=== PATIENT | female | born 1950 | race Caucasian/White ===

== ENCOUNTER 2022-05-16 11:57 | Day surgery (SDC) | payer MEDICARE, OTHER ==
[~2022-05-16] VITALS: Ht 147.3 cm; Wt 52.0 kg
[~2022-05-16 11:57] MED LIST: ACETAMINOPHEN325 M1 PO; ADULT LOW DOSE81 MG PO; DIGOXIN250 MCG PO; HYDROCHLOROTH12.5 MG PO; LIPITOR80 MG PO; LISINOPRIL-HCT1 EACH PO; LOSARTAN-HCTZ1 EACH PO; MAGNESIUM OXID400 M1 PO; METFORMIN HCL500 MG PO; TRAZODONE HCL50 MG PO; VENTOLIN HFA18 GM INH; VITAMIN D350 MC3 PO; WARFARIN SODIUM5 MG PO
[2022-05-16] MEDS ORDERED: LOVENOX40 MG/0.4 (12:16)
--- NOTE | 2022-05-16 13:17 | NUR ---
05/16/22 1317 Kathia Bains 1314 PATIENT ARRIVES TO PACU SLEEPING. AWAKENS WITH VERBAL STIMULI. RESP EVEN AND UNLABORED, ROOM AIR SATS >94%.
--- NOTE | 2022-05-17 15:57 | OR ---
[facility] [address], [place] [address] Signed DATE OF OPERATION: 05/16/2022 SURGEON: Yaniv Welsh MD PREOPERATIVE DIAGNOSES: 1. Colon screening; family history of colon cancer (father). 2. History of mitral valve repair and chronic anticoagulation (Coumadin). POSTOPERATIVE DIAGNOSIS: Normal colon to cecum. PROCEDURE: Total colonoscopy to cecum. ANESTHESIA: Intravenous sedation, fentanyl 100 mcg and Versed 3 mg. PREOPERATIVE ANTIBIOTIC: Gentamicin 80 mg and ampicillin 1 g. INDICATION: A 71-year-old white woman is a patient of Dr. Baeza. She underwent appendectomy and cholecystectomy in 2007 as well as colonoscopy and upper endoscopy. Colonoscopy was unremarkable. The patient has family history of colon cancer in her father. She is currently symptom free, having no bleeding, diarrhea or constipation. She is admitted at this time to undergo rather screening colonoscopy based on interval of time since her last colonoscopy (2007). She understands the risks of bleeding, infection, and perforation related to colonoscopy and wished to proceed. FINDINGS: Prep was excellent. Complete colonoscopy was undertaken to the cecum without question. She had no evidence of polyps, diverticula formation, colitis, or cancer. PROCEDURE IN DETAIL: The patient was brought to the endoscopy suite and placed in lateral decubitus position. She had been given preoperative antibiotic of gentamicin and ampicillin on the basis of her prior mitral valve replacement. Additionally, she was on Lovenox bridge therapy and off her Coumadin for several days. After satisfactory intravenous sedation with full cardiopulmonary monitoring. An Electronically Signed By: YANIV WELSH MD 05/17/22 1557 PATIENT NAME: GENARO OLMOS OPERATIVE REPORT DATE OF : 52 REPORT #: [id number] PHYSICIAN: YANIV WELSH MD PCP: JANNETTE BAEZA MD REPORT IS CONFIDENTIAL AND NOT TO BE RELEASED WITHOUT AUTHORIZATION [facility] [address], [place] [address] Signed Olympus video colonoscope was passed in the rectum after normal digital rectal examination was noted. The scope was manipulated throughout the colon ultimately intubating the cecum itself. The ileocecal valve and appendiceal orifice were normal. The scope was withdrawn, examination throughout showed no sign of polyps, diverticular formation, colitis, or cancer. Retroflexed view was normal as well. The scope was removed. The patient was taken to the recovery room in good condition. CONCLUSION DIAGNOSIS: Normal colon. PLAN: Recommend repeat colonoscopy in 5 years, sooner if clinically indicated. She will return to the ongoing care of Dr. Jannette Baeza otherwise. MD JJ Desouza/SAIRA /[id number] cc: Dr. Jannette Baeza Copies: ~ Electronically Signed By: YANIV WELSH MD 05/17/22 1557 PATIENT NAME: GENARO OLMOS OPERATIVE REPORT DATE OF : 52 REPORT #: [id number] PHYSICIAN: YANIV WELSH MD PCP: JANNETTE BAEZA MD REPORT IS CONFIDENTIAL AND NOT TO BE RELEASED WITHOUT AUTHORIZATION
== END 2022-05-16 13:50 | disposition home or self-care (01) ==
LOC: DS 11:57 → OPS 11:57 → DS 13:00 → OPS 13:00
PROVIDERS: ATTEND Surgery
PROC: 0DJD8ZZ Inspection of Lower Intestinal Tract, Via Natural or Artificial Opening Endoscopic (ICD-10-PCS; principal; 2022-05-16 13:00)
DX: Z12.11 Encounter for screening for malignant neoplasm of colon (principal); Z80.0 Family history of malignant neoplasm of digestive organs; Z90.49 Acquired absence of other specified parts of digestive tract; I10 Essential (primary) hypertension; E78.5 Hyperlipidemia, unspecified; Z79.01 Long term (current) use of anticoagulants; Z95.2 Presence of prosthetic heart valve; Z79.82 Long term (current) use of aspirin; Z79.84 Long term (current) use of oral hypoglycemic drugs; J45.909 Unspecified asthma, uncomplicated
CPT/HCPCS: 99153; G0500; J0290; J1580; J2250; J3010; J7121

== ENCOUNTER 2025-04-30 19:25 | Emergency (ER) | payer MEDICARE, OTHER ==
[~2025-04-30] VITALS: Ht 147.3 cm; Wt 50.0 kg
[~2025-04-30 19:25] MED LIST changes: +DIGOXIN125 MCG PO; +ENOXAPARIN60 MG/0.6 SUB-Q; +FARXIGA10 MG PO; +LOSARTAN POTASS50 MG PO; +LOVENOX40 MG/0.4; +METOPROLOL TART25 MG PO; +WARFARIN SODIU7.5 MG PO
--- OUTSIDE RECORDS SUMMARY | 2025-04-30 19:32 | XMS ---
PreManage Notification: GENARO OLMOS Security Slp Events No recent Security Events currently on file CRITERIA MET - [facility] - 2 Visits in 30 Days CARE PROVIDERS There are no care providers on record at this time. Ganesh has no Care Guidelines for this patient. Nickie VISIT COUNT (12 MO.) [facility] [place] T[facility] 2 NOTE: Visits indicate total known visits. ED/UCC VISIT TRACKING (12 MO.) 04/30/2025 19:26 ANNELIESE Ortiz OR TYPE: Emergency COMPLAINT: - POSS INFECTION 04/03/2025 12:52 [facility] Silvia HEPCINTHYA Paredeser TYPE: Emergency COMPLAINT: - Aphasia - Weakness DIAGNOSES: 1. Cerebral infarction due to unspecified occlusion or stenosis of left middle cerebral artery 2. Presence of prosthetic heart valve INPATIENT VISIT TRACKING (12 MO.) 04/03/2025 16:17 [facility] TYPE: Neurology DIAGNOSES: - Cerebral infarction, unspecified - Cerebral infarction, unspecified - Stroke [email or web address]
[2025-04-30] MEDS ORDERED: MUPIROCIN 22 GM TUBE TOP ONE (19:45)
[2025-04-30] MEDS ORDERED: CENTANY30 GM TOP (19:47)
[2025-04-30] MEDS ORDERED: MUPIROCIN 22 GM TUBE ONE (19:48)
[2025-04-30 20:07] VITALS: BP 121/78
== END 2025-04-30 20:08 | disposition home or self-care (01) ==
LOC: ED 19:25
DX: R23.8 Other skin changes (principal); I10 Essential (primary) hypertension; G35 Multiple sclerosis; J44.9 Chronic obstructive pulmonary disease, unspecified; Z95.2 Presence of prosthetic heart valve; Z86.73 Personal history of transient ischemic attack (TIA), and cerebral infarction without residual deficits; Z87.891 Personal history of nicotine dependence; Z88.2 Allergy status to sulfonamides; Z88.8 Allergy status to other drugs, medicaments and biological substances; Z79.899 Other long term (current) drug therapy; Z79.84 Long term (current) use of oral hypoglycemic drugs; Z79.01 Long term (current) use of anticoagulants
CPT/HCPCS: 99282